=== PATIENT | male | born 1980 | race Caucasian/White ===

== ENCOUNTER 2017-09-08 13:27 | Emergency (ER) | payer OTHER ==
[~2017-09-08] VITALS: Ht 170.2 cm; Wt 130.6 kg
[2017-09-08 13:58] LABS: PLATELET COUNT 264 x10^3mcL (130-400); RED CELL DISTRIBUTION WIDTH 13.4 % (11.5-14.5)
[2017-09-08 14:18] LABS: CALCIUM 9.3 mg/dL (8.5-10.1); CARBON DIOXIDE 24.3 mmol/L (21-32); CHLORIDE SERUM 101 mmol/L (98-107); CREATININE SERUM 0.9 mg/dL (0.7-1.3); GFR1 > 60 mL/min; GLUCOSE SERUM 145 mg/dL (74-106); POTASSIUM SERUM 3.7 mmol/L (3.5-5.1); SODIUM SERUM 138 mmol/L (136-145)
[2017-09-08 15:34] VITALS: BP 131/85
== END 2017-09-08 15:34 | disposition home or self-care (01) ==
LOC: ED 13:27
PROVIDERS: Emergency Medicine
DX: S30.0XXA Contusion of lower back and pelvis, initial encounter (principal); E11.9 Type 2 diabetes mellitus without complications; R10.9 Unspecified abdominal pain; Z86.79 Personal history of other diseases of the circulatory system; W10.8XXA Fall (on) (from) other stairs and steps, initial encounter; Y93.89 Activity, other specified; Y99.8 Other external cause status; Y92.89 Other specified places as the place of occurrence of the external cause
CPT/HCPCS: 36415; J3010

== ENCOUNTER 2017-12-19 09:38 | Emergency (ER) | payer OTHER ==
[~2017-12-19] VITALS: Ht 170.2 cm; Wt 130.6 kg
[2017-12-19 09:45] VITALS: Ht 170.2 cm; Wt 130.6 kg
[2017-12-19 12:14] VITALS: BP 139/70
== END 2017-12-19 12:14 | disposition home or self-care (01) ==
LOC: ED 09:38
DX: T15.11XA Foreign body in conjunctival sac, right eye, initial encounter (principal); X58.XXXA Exposure to other specified factors, initial encounter; Y93.89 Activity, other specified; Y92.89 Other specified places as the place of occurrence of the external cause; Y99.8 Other external cause status

== ENCOUNTER 2018-11-07 18:20 | Emergency (ER) | payer SELFPAY ==
[~2018-11-07] VITALS: Ht 170.2 cm; Wt 123.4 kg
[2018-11-07 18:26] VITALS: Ht 170.2 cm; Wt 123.4 kg
[2018-11-07 22:06] LABS: UA SPECIFIC GRAVITY >=1.030 (1.005-1.035); microscopic required? YES; urine erythrocyte NEGATIVE (NEGATIVE)
[2018-11-07 23:40] LABS: BASOPHIL % 0.6 % (0-2); PLATELET COUNT 201 x10^3mcL (130-400); RED CELL DISTRIBUTION WIDTH 13.5 % (11.5-14.5)
[2018-11-07 23:43] LABS: CALCIUM 8.8 mg/dL (8.5-10.1); CARBON DIOXIDE 25.8 mmol/L (21-32); CHLORIDE SERUM 100 mmol/L (98-107); CREATININE SERUM 0.9 mg/dL (0.7-1.3); GFR1 > 60 mL/min; GLUCOSE SERUM 342 mg/dL (74-106); POTASSIUM SERUM 3.7 mmol/L (3.5-5.1); SODIUM SERUM 135 mmol/L (136-145)
[2018-11-07 23:48] LABS: ALBUMIN 3.8 g/dL (3.4-5.0); ALKALINE PHOSPHATASE 124 U/L (46-116); ALT/SGPT 63 U/L (16-63); AST/SGOT 27 U/L (15-37); BILIRUBIN TOTAL 0.48 mg/dL (0.20-1.00); MAGNESIUM 1.8 mg/dL (1.8-2.4); TOTAL PROTEIN, SERUM 7.5 g/dL (6.4-8.2)
[2018-11-08 00:48] VITALS: BP 150/95
== END 2018-11-08 00:48 | disposition home or self-care (01) ==
LOC: ED 18:20
PROVIDERS: Emergency Medicine
DX: S91.311A Laceration without foreign body, right foot, initial encounter (principal); E11.65 Type 2 diabetes mellitus with hyperglycemia; E86.0 Dehydration; W01.198A Fall on same level from slipping, tripping and stumbling with subsequent striking against other object, initial encounter; Y93.E1 Activity, personal bathing and showering; Y92.091 Bathroom in other non-institutional residence as the place of occurrence of the external cause; Y99.8 Other external cause status
CPT/HCPCS: 82962; J1815; J1885; J2001; J7030

== ENCOUNTER 2018-11-10 07:28 | Emergency (ER) | payer SELFPAY ==
[~2018-11-10] VITALS: Ht 170.2 cm; Wt 122.9 kg
[2018-11-10 08:10] VITALS: BP 136/89
== END 2018-11-10 08:10 | disposition home or self-care (01) ==
LOC: ED 07:28
DX: S91.311D Laceration without foreign body, right foot, subsequent encounter (principal); E11.9 Type 2 diabetes mellitus without complications; X58.XXXD Exposure to other specified factors, subsequent encounter

== ENCOUNTER 2018-11-27 07:13 | Emergency (ER) | payer MEDICAID ==
[~2018-11-27] VITALS: Ht 170.2 cm; Wt 123.4 kg
[2018-11-27 07:23] VITALS: BP 166/88; Ht 170.2 cm; Wt 123.4 kg
== END 2018-11-27 07:41 | disposition home or self-care (01) ==
LOC: ED 07:13
DX: S91.311D Laceration without foreign body, right foot, subsequent encounter (principal); E11.9 Type 2 diabetes mellitus without complications; W01.190D Fall on same level from slipping, tripping and stumbling with subsequent striking against furniture, subsequent encounter

== ENCOUNTER 2018-12-24 06:45 | Emergency (ER) | payer MEDICAID ==
[~2018-12-24] VITALS: Ht 170.2 cm; Wt 122.5 kg
[2018-12-24 06:54] VITALS: Ht 170.2 cm; Wt 122.5 kg
[2018-12-24 08:39] VITALS: BP 144/97
== END 2018-12-24 08:39 | disposition home or self-care (01) ==
LOC: ED 06:45
DX: M25.562 Pain in left knee (principal); G89.29 Other chronic pain; H66.92 Otitis media, unspecified, left ear; E11.9 Type 2 diabetes mellitus without complications; I25.2 Old myocardial infarction